=== PATIENT | male | born 1980 | race Caucasian/White ===

== ENCOUNTER 2025-02-10 08:41 | Inpatient (IN) | payer OTHER ==
[~2025-02-10] VITALS: Ht 177.8 cm; Wt 83.1 kg
[2025-02-10 08:51] VITALS: O2SAT 100
[2025-02-10] MEDS: ONDANSETRON HCL 4MG/2ML INJ IV ONE (10:18)
[2025-02-10 10:27] LABS: HEMATOCRIT. 46.8 % (42.0-52.0); HEMOGLOBIN. 15.8 g/dL (14.0-18.0); MEAN PLATELET VOLUME 7.4 fl (7.4-10.4); PLATELET 386 x1000/uL (130-400); RED BLOOD CELL COUNT 4.64 mill/uL (4.7-6.1); RED CELL DISTRIBUTION WIDTH 12.9 % (11.6-14.6)
[2025-02-10] MEDS: SODIUM CHLORIDE 0.9% 1,000 ML IV ONE (10:27)
[2025-02-10 10:38] LABS: CREATININE 1.4 mg/dL (0.6-1.3); UREA NITROGEN BLOOD 22.0 mg/dL (9-23)
[2025-02-10 10:40] LABS: TROPONIN I HIGH SENSITIVITY 27 ng/L (3.0-53)
[2025-02-10 10:55] LABS: BAND% 2.0 % (1.0-6.0); LYMPHOCYTES % MANUAL 4.0 % (20.0-50.0); MONOCYTES % MANUAL 5.0 % (2.0-8.0); NEUTROPHILS % MANUAL 89.0 % (45.0-75.0)
[2025-02-10 10:56] LABS: PLATELET ESTIMATE NORMAL
[2025-02-10] MEDS: MORPHINE SULFATE 4 MG/ML INJ (FOR IV/IM USE) IV ONE (12:46)
[2025-02-10] MEDS ORDERED: CLONIDINE 0.1MG TABLET PO PRN (13:45)
[2025-02-10] MEDS ORDERED: POTASSIUM CHLORIDE 20MEQ TABLET SR PO NR (13:45)
[2025-02-10] MEDS ORDERED: ONDANSETRON HCL 4MG/2ML INJ IV PRN (13:45)
[2025-02-10] MEDS ORDERED: GUAIFENESIN 200MG/10ML SUGAR FREE UDC PO PRN (13:45)
[2025-02-10] MEDS ORDERED: DOCUSATE SODIUM 100MG CAPSULE PO PRN (13:45)
[2025-02-10] MEDS ORDERED: IPRATROPIUM/ALBUTEROL 0.5-3(2.5)MG/3ML NEB HHN PRN (13:45)
[2025-02-10] MEDS ORDERED: ACETAMINOPHEN 325MG TABLET PO PRN (13:45)
[2025-02-10] MEDS ORDERED: MAGNESIUM/ALUMINUM HYDROXIDE/SIMETHICONE 30ML UDC PO PRN (13:45)
[2025-02-10] MEDS ORDERED: DEXTROSE 50% WATER 50ML SYRINGE IV PRN (13:45)
[2025-02-10 13:46] LABS: TROPONIN I HIGH SENSITIVITY 29 ng/L (3.0-53)
[2025-02-10 14:00] VITALS: BP 127/70; PULSE 114; RESP 17; TEMP 36.9; O2SAT 99
[2025-02-10] MEDS ORDERED: ALPRAZOLAM 0.25 MG TABLET PO PRN (14:30)
[2025-02-10] MEDS: LEVOTHYROXINE SODIUM 100MCG TABLET PO NR (14:30)
[2025-02-10] MEDS: BUPROPION HCL 150MG TABLET XL 24HR PO NR (14:30)
[2025-02-10] MEDS: VALACYCLOVIR HCL 500MG TABLET PO SCH (14:30)
[2025-02-10] MEDS: LISINOPRIL 2.5MG TABLET PO SCH (14:30)
[2025-02-10 15:21] VITALS: BP 127/70; PULSE 114; RESP 17; TEMP 36.974
[2025-02-10] MEDS ORDERED: EFEX1 PO (15:48)
[2025-02-10 16:00] VITALS: BP 118/61; PULSE 101; RESP 18; TEMP 36.7; O2SAT 95
[2025-02-10] MEDS: INSULIN LISPRO 100 UNITS/ML SUBCUT SCH (17:50)
[2025-02-10] MEDS: BLOOD SUGAR DIAGNOSTIC STRIP TEST SCH (17:50)
[2025-02-10] MEDS: POTASSIUM CHLORIDE 20MEQ TABLET SR PO SCH (17:52)
[2025-02-10] MEDS: PANTOPRAZOLE SODIUM 40 MG/VIAL IV SCH (17:52)
[2025-02-10] MEDS: SODIUM CHLORIDE 0.45% 1,000 ML IV ONE (18:10)
[2025-02-10 20:00] VITALS: BP 114/63; PULSE 96; RESP 19; TEMP 36.7; O2SAT 97
[2025-02-10] MEDS: ATORVASTATIN CALCIUM 10MG TABLET PO SCH (20:51)
[2025-02-11] VITALS: BP 112/66; PULSE 96; RESP 18; TEMP 36.2
[2025-02-11 04:00] VITALS: BP 111/69; PULSE 95; RESP 18; TEMP 36.4; O2SAT 99
[2025-02-11 06:17] LABS: CLARITY URINE CLEAR (CLEAR); COLOR URINE YELLOW (YELLOW); GLUCOSE URINE 3+ (NEGATIVE); KETONES URINE 2+ (NEGATIVE); LEUKOCYTE ESTERASE URINE NEGATIVE (NEGATIVE); NITRITE URINE NEGATIVE (NEGATIVE); OCCULT BLOOD URINE NEGATIVE (NEGATIVE); PH URINE 6.0 (4.5-8.0); PROTEIN URINE TRACE (NEGATIVE); SPECIFIC GRAVITY URINE 1.027 (1.005-1.030); UROBILINOGEN URINE 0.2 E.U./dL (0.2-1.0)
[2025-02-11 06:29] LABS: BASOPHILS % 0.1 % (0.0-2.0); EOSINOPHILS % 0.2 % (0.0-5.0); HEMATOCRIT. 43.0 % (42.0-52.0); HEMOGLOBIN. 14.3 g/dL (14.0-18.0); LYMPHOCYTES % 17.3 % (20.0-50.0); MEAN PLATELET VOLUME 7.5 fl (7.4-10.4); MONOCYTES % 6.6 % (2.0-8.0); NEUTROPHILS % 75.8 % (40.0-76.0); PLATELET 263 x1000/uL (130-400); RED BLOOD CELL COUNT 4.15 mill/uL (4.7-6.1); RED CELL DISTRIBUTION WIDTH 13.4 % (11.6-14.6)
[2025-02-11 06:39] LABS: BACTERIA URINE NONE SEEN; FINE GRANULAR CASTS URINE 0-5 /lpf; RBC URINE NONE SEEN /hpf (0-2)
[2025-02-11 07:05] LABS: CREATININE 1.1 mg/dL (0.6-1.3); UREA NITROGEN BLOOD 12 mg/dL (9-23)
[2025-02-11 07:34] LABS: *AMPHETAMINES SCREEN URINE NEGATIVE (NEGATIVE); *BARBITURATES SCREEN URINE NEGATIVE (NEGATIVE); *BENZODIAZEPINES SCREEN URINE NEGATIVE (NEGATIVE)
[2025-02-11 07:35] LABS: *COCAINE SCREEN URINE NEGATIVE (NEGATIVE); CANNABINOID URINE SCREEN PRESUMPTIVE POSITIVE (NEGATIVE); METHADONE URINE SCREEN NEGATIVE (NEGATIVE); OPIATES URINE SCREEN PRESUMPTIVE POSITIVE (NEGATIVE); PHENCYCLIDINE URINE SCREEN NEGATIVE (NEGATIVE)
[2025-02-11 07:36] LABS: ECSTASY MDMA SCREEN URINE CONF.TEST INDICATED (NEGATIVE)
[2025-02-11 08:00] VITALS: BP_SYST 124; BP_SYST 163; BP_DIAS 69; BP_DIAS 76; PULSE 79; PULSE 96; RESP 13; RESP 18; TEMP 36.5; TEMP 36.6; O2SAT 94; O2SAT 99
[2025-02-11] MEDS: BUPROPION HCL 150MG TABLET XL 24HR PO SCH (08:58)
[2025-02-11] MEDS: LEVOTHYROXINE SODIUM 100MCG TABLET PO SCH (08:58)
== END 2025-02-11 09:30 | disposition left against medical advice (07) | DRG 638 ==
LOC: ER 08:41 → MICUSO 12:32 → EDBEDREQTM 12:35 → EDBEDREQ 12:35 → ENRESERV 13:57 → 6WST 14:18
PROVIDERS: ADMIT Internal Medicine; ATTEND Internal Medicine
DX: E11.65 Type 2 diabetes mellitus with hyperglycemia (principal); N17.9 Acute kidney failure, unspecified; E03.9 Hypothyroidism, unspecified; I10 Essential (primary) hypertension; D72.829 Elevated white blood cell count, unspecified; E83.52 Hypercalcemia; E86.0 Dehydration; E78.00 Pure hypercholesterolemia, unspecified; F41.0 Panic disorder [episodic paroxysmal anxiety]; Z53.29 Procedure and treatment not carried out because of patient's decision for other reasons; F90.9 Attention-deficit hyperactivity disorder, unspecified type; Z79.899 Other long term (current) drug therapy
CPT/HCPCS: 36415; 71045; 80048; 80305; 81003; 82962; 84484; 85025; 93005; 96361; 96374; 99285; J2270; J2405; J2470; J7030